=== PATIENT | female | born 1975 ===

== ENCOUNTER 2019-10-18 10:30 | Inpatient (IN) | payer OTHER ==
[~2019-10-18] VITALS: Ht 160 cm; Wt 74.8 kg
== END 2019-10-26 09:49 | disposition home or self-care (01) | DRG 742 ==
LOC: OB/GYN 10-23 08:51 → O/R 10-23 08:51 → OB/GYN 10-23 17:49
PROVIDERS: ADMIT Obstetrics & Gynecology
PROC: 0UB70ZZ Excision of Bilateral Fallopian Tubes, Open Approach (ICD-10-PCS; 2019-10-23)
PROC: 0UT90ZZ Resection of Uterus, Open Approach (ICD-10-PCS; principal; 2019-10-23 10:45)
DX: D26.1 Other benign neoplasm of corpus uteri (principal); N70.01 Acute salpingitis; N72 Inflammatory disease of cervix uteri; N93.8 Other specified abnormal uterine and vaginal bleeding